=== PATIENT | male | born 1955 | race Caucasian/White ===

== ENCOUNTER 2018-10-23 06:04 | Day surgery (SDC) | payer OTHER ==
[2018-10-19 12:15] VITALS: BMI 25.3
[~2018-10-23 06:04] MED LIST: LACTATED RINGERS 1,000 ML IV SCH; LIDOCAINE 1% 20 ML VIAL (10MG/ML) FOR IV START INTRADERMA PRN
[2018-10-23 06:31] VITALS: RESP 16; TEMP 98.1
[2018-10-23 06:52] LABS: Anisocytosis Slight; Basophils # (A) 0.1 k/uL (0-0.2); Basophils % (A) 1 %; Eosinophils # (A) 0.1 k/uL (0-0.7); Eosinophils % (A) 1 %; HCT 51.5 % (39.0-53.0); HGB 15.8 gm/dL (13.0-17.5); Hypochromasia Slight; Lymphocytes # (A) 1.2 k/uL (1.0-4.8); Lymphocytes % (A) 11 %; MCH 24.3 pg (25.0-35.0); MCHC 30.7 g/dL (31.0-37.0); MCV 79.1 fL (80.0-100.0); Mean Platelet Volume 7.5; Microcytosis Slight; Monocytes # (A) 0.7 k/uL (0-1.0); Monocytes % (A) 6 %; Neutrophils # (A) 8.5 k/uL (1.3-7.7); Neutrophils % (A) 80 %; Platelet Count 453 k/uL (150-450); RBC 6.51 m/uL (4.30-5.90); RDW 17.3 % (11.5-15.5); WBC 10.7 k/uL (3.8-10.6)
[2018-10-23] MEDS ORDERED: LIDOCAINE 1% INJ 10MG/ML (20 ML MDV) ONE (07:00)
[2018-10-23] MEDS ORDERED: fentaNYL (PF) 50 MCG/ML 2 ML AMP ONE (07:00)
[2018-10-23] MEDS ORDERED: PROPOFOL 10 MG/ML 20 ML VIAL IV ONE (07:00)
[2018-10-23] MEDS ORDERED: MIDAZOLAM 2 MG/2 ML VIAL ONE (07:00)
[2018-10-23] MEDS ORDERED: LIDOCAINE 2% INJ 20 MG/ML SQ ONE (07:16)
[2018-10-23 07:48] VITALS: BP 119/74; PULSE 94
--- NOTE | 2018-10-23 08:15 | PCN ---
PROCEDURE NOTE DATE OF PROCEDURE: 10/23/2018 PREOPERATIVE DIAGNOSIS: Erythrocytosis. POSTOPERATIVE DIAGNOSIS: Erythrocytosis. PROCEDURE: Bone marrow aspirate and biopsy. SITE: Right iliac crest. ANESTHESIA: Local with systemic sedation. DETAILS: Utilizing sterile technique, the skin overlying the right iliac crest were prepared with Betadine and alcohol. After adequate sterile draping, systemic sedation and local anesthesia with 1% lidocaine, a size 11, 4-inch Jamshidi needle utilized to access the periosteum with ease. A total of 10 mL of aspirate and 4 cm bone core biopsies were obtained. The patient tolerated the procedure very well. There was no immediate procedure related complications. TOTAL BLOOD LOSS: Less than 1 mL. RESULTS: Pending. MMODL / IJN: [id number] /
== END 2018-10-23 08:05 | disposition home or self-care (01) ==
LOC: OR 06:04
PROVIDERS: ATTEND Internal Medicine Hematology & Oncology
DX: D75.1 Secondary polycythemia (principal); D72.829 Elevated white blood cell count, unspecified; D47.3 Essential (hemorrhagic) thrombocythemia; F31.9 Bipolar disorder, unspecified; F20.9 Schizophrenia, unspecified; F17.210 Nicotine dependence, cigarettes, uncomplicated; N18.9 Chronic kidney disease, unspecified; Z79.899 Other long term (current) drug therapy; Z71.6 Tobacco abuse counseling; Z71.3 Dietary counseling and surveillance
CPT/HCPCS: 85025; 38222; J2001 ×2; J2250; J3010; J2704

== ENCOUNTER → 2019-07-25 | Outpatient (CLI) | payer OTHER ==
--- NOTE | 2019-07-25 15:58 | CT ---
EXAMINATION TYPE: CT ChestAbdPelvis w con DATE OF EXAM: 07/25/2019 INDICATION: SOB, weight loss, change in appetite COMPARISON: 10/08/2008 CT DLP: 551.2 mGycm CONTRAST: Performed with Oral Contrast and with IV Contrast, patient injected with 80 mL of Isovue 300. TECHNIQUE: Axial images at 5 mm thick sections. Reconstructed images in the coronal plane. Delayed images through the kidneys. FINDINGS: CT CHEST: Portion of the thyroid visualized is normal. There is contrast within the esophagus. Correlate for reflux. No suspicious lung nodules or focal infiltrates are present. No enlarged mediastinal or hilar adenopathy is evident. The ascending aorta diameter at the level of the main pulmonary artery is 3.0 cm. The main pulmonary artery diameter at the bifurcation is 2.[address] ABDOMEN: Liver: Normal Spleen: Normal Pancreas: Normal Adrenal glands: The adrenal glands are normal. Gallbladder: Surgically absent Kidneys: No masses are evident. No hydronephrosis is present. No cysts are present. Delayed images were obtained through the kidneys, which remain unremarkable. Aorta: Vascular calcification is within the aorta. Inferior vena cava: Normal. CT PELVIS: Loops of bowel within the abdomen and pelvis are normal. Moderate size fecal bolus is at the level the rectum. Loops of bowel distended with oral contrast are unremarkable. There are loops of bowel la cking oral contrast limiting their evaluation. Contrast extends to the proximal ascending colon. Mixi ng of contrast with fecal debris may be present. An mass cannot be excluded. Appendix: Normal as visualized. Urinary bladder: Normal. Genitourinary structures: Prostate is very prominent. Osseous structures: No suspicious lytic or sclerotic lesions. IMPRESSIONS: 1. Very prominent prostate. 2. Filling defect versus normal fecal debris mixing contrast the proximal cecum should be considered. 3. Gastroesophageal reflux be considered.
== END | disposition home or self-care (01) ==
LOC: RADCTMAIN 10:49
PROVIDERS: ATTEND Internal Medicine Hematology & Oncology
DX: K21.9 Gastro-esophageal reflux disease without esophagitis (principal); R63.4 Abnormal weight loss; R06.02 Shortness of breath; R10.84 Generalized abdominal pain
CPT/HCPCS: 82565; 84520; 71260; 74177; 36415; Q9967

== ENCOUNTER → 2020-10-30 | Outpatient (CLI) | payer OTHER ==
--- NOTE | 2020-10-30 13:54 | MR ---
EXAMINATION TYPE: MR lumbar spine wo con DATE OF EXAM: 10/30/2020 COMPARISON: CT chest abdomen and pelvis July 25, 2019 HISTORY: Lower back pain with left sided radiculopathy. TECHNIQUE: Multiplanar, multisequence imaging of the lumbar spine is performed without IV contrast. FINDINGS: Examination was suboptimal due to patient special needs complete imaging could not be perfo rmed. Only sagittal and axial T2-weighted images acquired. Sagittal images of the lumbar spine show v ertebral body height to remain satisfactory. Slight grade 1 retrolisthesis L4 on L5 redemonstrated. D isc desiccation L2-L3 and L4-L5 levels. Moderate to advanced disc space narrowing L4-L5 level redemon strated. The conus medullaris is normal in position and signal ending at T12-L1 disc space level. So me heterogeneous endplate changes superior anterior L3 and L4 levels noted. Mild multilevel anterior spurring. Axial images show motion artifact degradation by T12-L1 and L1-L2 levels are felt within normal limit s. Axial images at L2-L3 and L3-L4 levels are felt within normal limits. Axial images at L4-L5 level show mild facet arthropathy bilaterally. There is a broad disc bulge effa cing the anterior thecal sac with slightly more prominent left paracentral component effacing left la teral recess and central left L5 nerve on axial image 7. Patent bilateral neural foramina. Axial images at L5-S1 level show mild facet arthropathy otherwise are within normal limits. Paraspinal muscle bulk is maintained. IMPRESSION: Subtle spondylolisthesis and degenerative change L4-L5 level. Effacement central left L5 nerve is felt present. Further details as discussed above.
== END | disposition home or self-care (01) ==
LOC: RADMRIMAIN 11:21
PROVIDERS: ATTEND Family Medicine
DX: M47.26 Other spondylosis with radiculopathy, lumbar region (principal); M51.16 Intervertebral disc disorders with radiculopathy, lumbar region; M43.16 Spondylolisthesis, lumbar region
CPT/HCPCS: 72148

== ENCOUNTER 2021-04-08 11:47 | Day surgery (SDC) | payer OTHER ==
[2021-04-06 11:24] VITALS: BMI 25.1
[~2021-04-08 11:47] MED LIST changes: -LIDOCAINE 1% 20 ML VIAL (10MG/ML) FOR IV START INTRADERMA PRN
[2021-04-08 12:27] VITALS: RESP 16; TEMP 98
[2021-04-08] MEDS ORDERED: MIDAZOLAM 2 MG/2 ML VIAL ONE (12:52)
[2021-04-08] MEDS ORDERED: fentaNYL (PF) 50 MCG/ML 2 ML AMP ONE (12:52)
[2021-04-08] MEDS ORDERED: TRIAMCINOLONE ACETONIDE 40 MG/ML 1 ML VIAL ONE (12:52)
[2021-04-08] MEDS ORDERED: ROPIVACAINE 5MG/ML 20ML VIAL ONE (12:52)
[2021-04-08] MEDS ORDERED: IOPAMIDOL M200 10 ML VIAL ONE (12:52)
--- NOTE | 2021-04-08 13:02 | P.PCN ---
Date of Procedure: 04/08/21 Surgeon: Aime Glasgow Pathology: none sent Condition: stable Disposition: PACU Description of Procedure: PREOPERATIVE DIAGNOSIS: 1-Lumbar radiculopathy 2- Lumber Degenerative Disc Diseases. POSTOPERATIVE DIAGNOSIS: 1-Lumbar radiculopathy. 2-Lumbar Degenerative Disc Diseases PROCEDURE 1. Lumbar epidural steroid injection under fluoroscopic guidance at the L4-5 level in the left paramedian approach. 2. Lumbar epidurogram. ANESTHESIA: Local with 1% lidocaine; and IV moderate conscious sedation with Versed and fentanyl EBL: Minimal PROCEDURE INDICATION: The patient with low back pain and radiculitis symptoms unresponsive to conservative treatment. Fluoroscopy was used to optimize visualization of the needle placement and to maximize safety. PROCEDURE DESCRIPTION / TECHNIQUE: The patient was seen and identified in the preoperative area. Risks, benefits, complications including but not limited to infections ,bleeding ,allergic reaction to the medications ,nerve damage and not complete pain relief , and alternatives were discussed with the patient. The patient agreed to proceed with the procedure and signed the consent. IV was started, and vital signs were stable. Patient was taken to the OR and time out was completed. The patient was placed in the prone position on procedure table and a pillow was placed under the abdomen to reduce lumbar lordosis. The lumbosacral area was prepped and draped in the usual sterile fashion with ChloraPrep.Patient was closely monitored during the procedure. Conscious sedation was used during the procedure to decrease patients anxiety. Vital signs were monitered during the entire procedure. Using anterior-posterior fluoroscopy, the L4-5 interlaminar space was identified and the skin over this site was marked and then infiltrated with 1% lidocaine subcutaneously. Subsequently, a 20-gauge Tuohy epidural needle was inserted and advanced toward the epidural space using the Loss of resistance to air technique and guided by AP and lateral fluoroscopy. The correct needle position in the epidural space was verified with the injection of 1 mL of the water soluble contrast dye Omnipaque 180 contrast and observing an excellent epidurogram with the epidural spread of the dye, after negative aspiration for blood and CSF and in the absence of paresthesias. Again after negative aspiration, a 8 ml mixture containing 80 mg of Kenalog and 5 ml of preservative free Normal Saline, and 2 ml of preservative free ropivacaine 0.5% solution was injected and a washout of epidurogram was seen. Needle was withdrawn intact, skin was cleansed, and bandages were applied. patient tolerated procedure well and was transferred to PACU in stable condition.A copy of the needle placement picture was saved to the fluoroscopy machine. COMPLICATIONS: None DISPOSITION / PLANS: The patient was placed in a supine position and transferred to the recovery area in a stable condition for observation. There was no evidence of lower extremity motor or sensory deficit after the procedure. Patient was discharged from the recovery room after meeting discharge criteria. Home discharge instructions were given to the patient by the staff. The patient was reexamined prior to discharge. The patient will schedule a follow up in the clinic in 2-4 weeks.
[2021-04-08] MEDS ORDERED: IV FLUID CONTINUATION 1,000 ML IV ONE (13:07)
--- NOTE | 2021-04-08 13:12 | FL ---
EXAMINATION TYPE: FL guided pain mgmt statistic DATE OF EXAM: 04/08/2021 HISTORY: Fluoroscopy time 2 seconds of fluoroscopy provided. IMPRESSION: 1. Fluoroscopy time.
[2021-04-08 13:27] VITALS: BP 116/56; PULSE 95
== END 2021-04-08 13:51 | disposition home or self-care (01) ==
LOC: ORPAIN 11:47
PROVIDERS: ATTEND Anesthesiology
DX: M51.16 Intervertebral disc disorders with radiculopathy, lumbar region (principal)
CPT/HCPCS: 62323; J2250; J3301; J3010; Q9966; J2795

== ENCOUNTER 2021-06-15 08:39 | Day surgery (SDC) | payer OTHER ==
[2021-05-19 10:32] VITALS: BMI 25.4
[2021-06-15 09:04] VITALS: RESP 16; TEMP 97.9
[2021-06-15] MEDS ORDERED: LACTATED RINGERS 1,000 ML IV SCH (09:15)
[2021-06-15] MEDS ORDERED: fentaNYL (PF) 50 MCG/ML 2 ML AMP ONE (09:35)
[2021-06-15] MEDS ORDERED: MIDAZOLAM 2 MG/2 ML VIAL ONE (09:35)
[2021-06-15] MEDS ORDERED: methylPREDNISolone ACETATE 40 MG/ML 1 ML VIAL ONE (09:35)
[2021-06-15] MEDS ORDERED: IOPAMIDOL M200 10 ML VIAL ONE (09:35)
--- NOTE | 2021-06-15 09:48 | P.PCN ---
Date of Procedure: 06/15/21 Description of Procedure: Procedure: 1. L4-L5 Epidural steroid injection under fluoroscopic guidance #2, 2. Lumbar epidurogram PREOPERATIVE DIAGNOSIS: Lumbar degenerative disc disease, and Lumbar radiculopathy. POSTOPERATIVE DIAGNOSIS: Lumbar degenerative disc disease, and Lumbar ra diculopathy. SURGEON: Barb Cortes ANESTHESIA: Local with 1% lidocaine, and IV sedation: Versed, and fentanyl. EBL: None. Specimen removed: None Fluoroscopic image: saved to electronic medical records PROCEDURE INDICATION: The patient had history of Lumbar degenerative disc disease and Lumbar radiculopathy. Patient had very good pain relief with the previous epidural steroid injection. Failed to conservative therapy. Came here for repeat epidural steroid injection. PROCEDURE DESCRIPTION: The patient was seen and identified in the preoperative area. Risks, benefits, complications, and alternatives were discussed with the patient. The patient agreed to proceed with the procedure and signed the consent. IV was started, and vital signs were stable. Patient was taken to the procedure area, and time out was completed. The patient was placed in the prone position on procedure table and a pillow was placed under the abdomen to reduce lumbar lordosis. The lumbosacral area was prepped and draped in the usual sterile fashion. Critical pause was taken. Vital signs were closely monitored during the procedure. Using anterior-posterior fluoroscopy, the L4-L5 interlaminar space was identified, and skin and deeper tissues were localized with 1% lidocaine. Using anterior-posterior fluoroscopy, lateral fluoroscopy, and [id number] technique, a 20 gauge 3.5 Tuohy epidural needle entered the epidural space. After negative aspiration of CSF and blood with no paresthesias, 1 ml of Ssyrby138 contrast dye was injected and an excellent epidurogram was seen. Again after negative aspiration of CSF and blood with no paresthesias, 10 mL of block solution was injected into the epidural space. Block solution contained 80 mg of Depo-Medrol, and 9 mL of preservative-free normal saline. Needle was withdrawn intact, skin was cleansed, and bandages were applied. COMPLICATIONS: None. DISPOSITION / PLANS: The patient was placed in a supine position and transferred to the recovery area in a stable condition for observation. Patient was discharged from the recovery room after meeting discharge criteria. Home discharge instructions given to the patient by the staff. The patient was reexamined prior to discharge. The patient will schedule a follow up in the clinic in 4 weeks.
[2021-06-15] MEDS ORDERED: IV FLUID CONTINUATION 1,000 ML IV ONE (09:53)
[2021-06-15 10:09] VITALS: BP 120/78; PULSE 98
--- NOTE | 2021-06-15 10:09 | FL ---
EXAMINATION TYPE: FL guided pain mgmt statistic DATE OF EXAM: 06/15/2021 HISTORY: Fluoroscopy time 2 seconds of fluoroscopy provided. IMPRESSION: 1. Fluoroscopy time.
== END 2021-06-15 10:16 | disposition home or self-care (01) ==
LOC: ORPAIN 08:39
DX: M47.816 Spondylosis without myelopathy or radiculopathy, lumbar region (principal); M51.16 Intervertebral disc disorders with radiculopathy, lumbar region
CPT/HCPCS: 62323; J2250; J1030; J3010; Q9966

== ENCOUNTER 2024-03-16 16:18 | Observation (INO) | payer MEDICARE, OTHER ==
--- NOTE | 2024-03-16 16:40 | ED ---
SOB HPI - General Chief Complaint: Shortness of Breath Stated Complaint: MARIYA Time Seen by Provider: 03/16/24 16:27 Source: patient, family Mode of arrival: wheelchair Limitations: physical limitation (Schizophrenia) - History of Present Illness Initial Comments: This patient is a 68-year-old man with history of schizophrenia. The patient is accompanied by his sister, who is also his caregiver and gives most of the history. She states that he usually is not able to give much history. Patient's sister states that all of the family at home had been sick, with upper respiratory type symptoms cough, congestion, and then over the past few days the patient started having similar symptoms, cough, congestion but he also stopped eating and drinking much and now is becoming very weak. She states that he is not really getting around the house and he has not been able to get to the bathroom and has lost control of bowel movements. When I interviewed the patient, he denies pain. He denies dyspnea. MD Complaint: shortness of breath, cough Onset/Timin -: days(s) Consistency: constant Improves With: nothing Worsens With: exertion Associated Symptoms: cough Treatments Prior to Arrival: none - Related Data Home Oxygen Therapy: No Home Medications Medication Instructions Recorded Confirmed cloZAPine [Clozaril] 200 mg PO DAILY 10/19/18 03/16/24 cloZAPine [Clozaril] 400 mg PO HS 10/19/18 03/16/24 Hydroxyurea [Hydrea] 500 mg PO DAILY 04/06/21 03/16/24 Sertraline [Zoloft] 200 mg PO DAILY 04/06/21 03/16/24 LORazepam [Ativan] 1 mg PO DAILY PRN 03/16/24 03/16/24 Previous Rx's Medication Instructions Recorded Albuterol Sulfate [Albuterol 1 puff PO Q4-6H #8.5 gm 03/19/24 Sulfate Hfa] Beclomethasone Dipropionate [Qvar 1 puff INHALATION BID #10.6 gm 03/19/24 40 mcg Redihaler] cefUROXime axetiL [Ceftin] 500 mg PO BID 1 Days #2 tab 03/19/24 Allergies Allergy/AdvReac Type Severity Reaction Status Date / Time No Known Allergies Allergy Verified 07/09/21 15:16 Review of Systems ROS Statement: Those systems with pertinent positive or pertinent negative responses have been documented in the HPI. ROS Other: All systems not noted in ROS Statement are negative. Limitations: ROS unobtainable due to patients medical condition Constitutional: Denies: fever, chills Respiratory: Reports: cough, dyspnea. Denies: hemoptysis Cardiovascular: Denies: chest pain, orthopnea, edema, syncope Gastrointestinal: Reports: diarrhea. Denies: abdominal pain, vomiting Neurological: Denies: headache Past Medical History Past Medical History: GERD/Reflux, Memory Impairment, Renal Disease Additional Past Medical History / Comment(s): "PRODUCING TOO MUCH BLOOD." SKIN "PURPLE" COLOR R/T PREV RX. SCHIZOPHRENIC-LIMITED UNDERSTANDING PER SISTER. History of Any Multi-Drug Resistant Organisms: None Reported Additional Past Surgical History / Comment(s): COLONOSCOPY, BILATERAL CATARACTS. Past Anesthesia/Blood Transfusion Reactions: Family History of Problems w/ A nesthesia Additional Past Anesthesia/Blood Transfusion Reaction / Comment(s): SISTER HAS PONV. Past Psychological History: Schizophrenia Smoking Status: Former smoker Past Alcohol Use History: None Reported Past Drug Use History: None Reported - Past Family History Mother Sister(s) Family Medical History: Cancer, Deep Vein Thrombosis (DVT) Additional Family Medical History / Comment(s): SISTER - BREAST CANCER, DVT. MOTHER - COLON CANCER. General Exam Limitations: no limitations General appearance: alert, in no apparent distress Head exam: Present: atraumatic, normocephalic Eye exam: Present: normal appearance. Absent: scleral icterus, conjunctival injection ENT exam: Present: mucous membranes dry Neck exam: Present: normal inspection, full ROM. Absent: meningismus Respiratory exam: Present: wheezes, rales. Absent: respiratory distress, rhonchi, stridor, accessory muscle use Cardiovascular Exam: Present: normal rhythm, tachycardia, normal heart sounds. Absent: systolic murmur, diastolic murmur, rubs, gallop GI/Abdominal exam: Present: soft. Absent: distended, tenderness, guarding, rebound, rigid, mass Extremities exam: Present: normal inspection, normal capillary refill. Absent: pedal edema, calf tenderness Back exam: Present: normal inspection. Absent: CVA tenderness (R), CVA tenderness (L) Neurological exam: Present: alert Skin exam: Present: warm, dry, intact, normal color. Absent: rash Course Vital Signs 03/16/24 03/16/24 03/16/24 16:21 17:06 17:24 Temperature 97.5 F L Pulse Rate 107 H 79 Respiratory 20 19 18 Rate Blood Pressure 96/60 113/78 O2 Sat by Pulse 96 97 Oximetry 03/16/24 19:35 Temperature Pulse Rate 87 Respiratory 16 Rate Blood Pressure 130/78 O2 Sat by Pulse 96 Oximetry Medical Decision Making - Medical Decision Making The patient had chest x-ray that I interpreted as showing suspected bilateral lower infiltrates. Was pt. sent in by a medical professional or institution (, PA, ASBESTOS WORKER, urgent care, hospital, or [facility]...) When possible be specific @ -[No] Did you speak to anyone other than the patient for history (EMS, parent, family, police, friend...)? What history was obtained from this source @ -[No] Did you review nursing and triage notes (agree or disagree)? Why? @ -[I reviewed and agree with nursing and triage notes] Were old charts reviewed (outside hosp., previous admission, EMS record, old EKG, old radiological studies, urgent care reports/EKG's, [facility] records)? Report findings @ -[No old charts were reviewed] Differential Diagnosis (chest pain, altered mental status, abdominal pain women, abdominal pain men, vaginal bleeding, weakness, fever, dyspnea, syncope, headache, dizziness, GI bleed, back pain, seizure, CVA, palpatations, mental health, musculoskeletal)? @ -[Differential Altered Mental Status: Hypoglycemia, DKA, hypercapnia, ETOH, overdose, CO poisoning, trauma, myxedema coma, HTN encephalopathy, infection, encephalitis, psychosis, intercranial hemorrhage, hepatic encephalopathy, meningitis, CVA, this is not meant to be an all-inclusive list EKG interpreted by me (3pts min.). @ -[As above] X-rays interpreted by me (1pt min.). @ -[ I interpreted as above CT interpreted by me (1pt min.). @ -[None done] U/S interpreted by me (1pt. min.). @ -[None done] What testing was considered but not performed or refused? (CT, X-rays, U/S, labs)? Why? @ -[None] What meds were considered but not given or refused? Why? @ -[None] Did you discuss the management of the patient with other professionals (professionals i.e. , PA, ASBESTOS WORKER, lab, RT, psych nurse, criminal justice social worker, clerk supervisor, teacher, armed custom protection officer, case technician)? Give summary @ -[No] Was smoking cessation discussed for >3mins.? @ -[No] Was critical care preformed (if so, how long)? @ -[No] Were there social determinants of health that impacted care today? How? (Homelessness, low income, unemployed, alcoholism, drug addiction, transportation, low edu. Level, literacy, decrease access to med. care, [facility], rehab)? @ -[No] Was there de-escalation of care discussed even if they declined (Discuss DNR or withdrawal of care, Hospice)? DNR status @ -[No] What co-morbidities impacted this encounter? (DM, HTN, Smoking, COPD, CAD, Cancer, CVA, ARF, Chemo, Hep., AIDS, mental health diagnosis, sleep apnea, morbid obesity)? @ -[None] Was patient admitted / discharged? Hospital course, mention meds given and route, prescriptions, significant lab abnormalities, going to OR and other pertinent info. @ -[Patient is a 68-year-old man here with altered mental status and found to have suspected bilateral lower lobe infiltrate. Will have admission to have further evaluation and treatment. Undiagnosed new problem with uncertain prognosis? @ -[No] Drug Therapy requiring intensive monitoring for toxicity (Heparin, Nitro, Insul in, Cardizem)? @ -[No] Were any procedures done? @ -[No] Diagnosis/symptom? @ -Acute pneumonia Acute delirium Acute, or Chronic, or Acute on Chronic? @ -[Acute Uncomplicated (without systemic symptoms) or Complicated (systemic symptoms)? @ -Pneumonia complicated by delirium/altered mental status change Side effects of treatment? @ -[No] Exacerbation, Progression, or Severe Exacerbation? @ -[No] Poses a threat to life or bodily function? How? (Chest pain, USA, PA, pneumonia, PE, COPD, DKA, ARF, appy, cholecystitis, CVA, Diverticulitis, Homicidal, Suicidal, threat to staff... and all critical care pts) @ -Yes - Lab Data Result diagrams: 03/19/24 05:56 03/19/24 05:56 Lab Results 03/16/24 03/16/24 03/16/24 Range/Units 14:55 16:53 16:53 WBC 10.4 (3.8-10.6) k/uL RBC 3.29 L (4.30-5.90) m/uL Hgb 11.9 L (13.0-17.5) gm/dL Hct 35.9 L (39.0-53.0) % MCV 109.0 H (80.0-100.0) fL MCH 36.0 H (25.0-35.0) pg MCHC 33.1 (31.0-37.0) g/dL RDW 13.7 (11.5-15.5) % Plt Count 543 H (150-450) k/uL MPV 8.1 Neutrophils % 90 % Lymphocytes % 6 % Monocytes % 4 % Eosinophils % 0 % Basophils % 0 % Neutrophils # 9.3 H (1.3-7.7) k/uL Lymphocytes # 0.6 L (1.0-4.8) k/uL Monocytes # 0.4 (0-1.0) k/uL Eosinophils # 0.0 (0-0.7) k/uL Basophils # 0.0 (0-0.2) k/uL Manual Slide Review Performed Hypochromasia Moderate Poikilocytosis Slight Macrocytosis Marked A PT 13.3 H (10.0-12.5) sec INR 1.3 H (<1.2) APTT 27.9 (22.0-30.0) sec Sodium (137-145) mmol/L Potassium (3.5-5.1) mmol/L Chloride (98-107) mmol/L Carbon Dioxide (22-30) mmol/L Anion Gap mmol/L BUN (9-20) mg/dL Creatinine (0.66-1.25) mg/dL Est GFR (CKD-EPI)AfAm (>60 ml/min/1.73 sqM) Est GFR (CKD-EPI)NonAf (>60 ml/min/1.73 sqM) Glucose (74-99) mg/dL Plasma Lactic Acid Amilcar (0.7-2.0) mmol/L Calcium (8.4-10.2) mg/dL Total Bilirubin (0.2-1.3) mg/dL AST (17-59) U/L ALT (4-49) U/L Alkaline Phosphatase (38-126) U/L Troponin I (0.000-0.034) ng/mL NT-Pro-B Natriuret Pep pg/mL Total Protein (6.3-8.2) g/dL Albumin (3.5-5.0) g/dL Influenza Type A (PCR) (Not Detectd) Influenza Type B (PCR) (Not Detectd) Urine Legionella Ag Negative (Negative) Mycoplasma pneumon IgM (<=0.90) INDEX RSV (PCR) (Not Detectd) SARS-CoV-2 (PCR) (Not Detectd) 03/16/24 03/16/24 03/16/24 Range/Units 16:53 16:53 16:53 WBC (3.8-10.6) k/uL RBC (4.30-5.90) m/uL Hgb (13.0-17.5) gm/dL Hct (39.0-53.0) % MCV (80.0-100.0) fL MCH (25.0-35.0) pg MCHC (31.0-37.0) g/dL RDW (11.5-15.5) % Plt Count (150-450) k/uL MPV Neutrophils % % Lymphocytes % % Monocytes % % Eosinophils % % Basophils % % Neutrophils # (1.3-7.7) k/uL Lymphocytes # (1.0-4.8) k/uL Monocytes # (0-1.0) k/uL Eosinophils # (0-0.7) k/uL Basophils # (0-0.2) k/uL Manual Slide Review Hypochromasia Poikilocytosis Macrocytosis PT (10.0-12.5) sec INR (<1.2) APTT (22.0-30.0) sec Sodium 141 (137-145) mmol/L Potassium 3.2 L (3.5-5.1) mmol/L Chloride 106 (98-107) mmol/L Carbon Dioxide 27 (22-30) mmol/L Anion Gap 8 mmol/L BUN 22 H (9-20) mg/dL Creatinine 1.24 (0.66-1.25) mg/dL Est GFR (CKD-EPI)AfAm 70 (>60 ml/min/1.73 sqM) Est GFR (CKD-EPI)NonAf 61 (>60 ml/min/1.73 sqM) Glucose 136 H (74-99) mg/dL Plasma Lactic Acid Amilcar 1.1 (0.7-2.0) mmol/L Calcium 9.1 (8.4-10.2) mg/dL Total Bilirubin 0.5 (0.2-1.3) mg/dL AST 23 (17-59) U/L ALT 18 (4-49) U/L Alkaline Phosphatase 149 H (38-126) U/L Troponin I <0.012 (0.000-0.034) ng/mL NT-Pro-B Natriuret Pep 134 pg/mL Total Protein 6.6 (6.3-8.2) g/dL Albumin 3.2 L (3.5-5.0) g/dL Influenza Type A (PCR) (Not Detectd) Influenza Type B (PCR) (Not Detectd) Urine Legionella Ag (Negative) Mycoplasma pneumon IgM (<=0.90) INDEX RSV (PCR) (Not Detectd) SARS-CoV-2 (PCR) (Not Detectd) 03/16/24 03/16/24 Range/Units 16:53 16:53 WBC (3.8-10.6) k/uL RBC (4.30-5.90) m/uL Hgb (13.0-17.5) gm/dL Hct (39.0-53.0) % MCV (80.0-100.0) fL MCH (25.0-35.0) pg MCHC (31.0-37.0) g/dL RDW (11.5-15.5) % Plt Count (150-450) k/uL MPV Neutrophils % % Lymphocytes % % Monocytes % % Eosinophils % % Basophils % % Neutrophils # (1.3-7.7) k/uL Lymphocytes # (1.0-4.8) k/uL Monocytes # (0-1.0) k/uL Eosinophils # (0-0.7) k/uL Basophils # (0-0.2) k/uL Manual Slide Review Hypochromasia Poikilocytosis Macrocytosis PT (10.0-12.5) sec INR (<1.2) APTT (22.0-30.0) sec Sodium (137-145) mmol/L Potassium (3.5-5.1) mmol/L Chloride (98-107) mmol/L Carbon Dioxide (22-30) mmol/L Anion Gap mmol/L BUN (9-20) mg/dL Creatinine (0.66-1.25) mg/dL Est GFR (CKD-EPI)AfAm (>60 ml/min/1.73 sqM) Est GFR (CKD-EPI)NonAf (>60 ml/min/1.73 sqM) Glucose (74-99) mg/dL Plasma Lactic Acid Amilcar (0.7-2.0) mmol/L Calcium (8.4-10.2) mg/dL Total Bilirubin (0.2-1.3) mg/dL AST (17-59) U/L ALT (4-49) U/L Alkaline Phosphatase (38-126) U/L Troponin I (0.000-0.034) ng/mL NT-Pro-B Natriuret Pep pg/mL Total Protein (6.3-8.2) g/dL Albumin (3.5-5.0) g/dL Influenza Type A (PCR) Not Detected (Not Detectd) Influenza Type B (PCR) Not Detected (Not Detectd) Urine Legionella Ag (Negative) Mycoplasma pneumon IgM 0.39 (<=0.90) INDEX RSV (PCR) Not Detected (Not Detectd) SARS-CoV-2 (PCR) Not Detected (Not Detectd) - EKG Data -: EKG Interpreted by [place] EKG shows normal: sinus rhythm (Rate 91 bpm), axis (Right axis deviation), QRS complexes (Right bundle branch block) Disposition Clinical Impression: Pneumonia, Altered mental status Disposition: ADMITTED IP TO THIS HOSP Condition: Fair Is patient prescribed a controlled substance at d/c from ED?: No
[2024-03-16] MEDS: SODIUM CHLORIDE 0.9% 500 ML 500 ML IV STA ×3 (16:50→19:31)
--- NOTE | 2024-03-16 17:28 | XR ---
EXAMINATION TYPE: XR chest 2V DATE OF EXAM: 03/16/2024 COMPARISON: None INDICATION: Cough x2 weeks with difficulty breathing TECHNIQUE: Frontal and lateral views of the chest are obtained. FINDINGS: The heart size is normal. The pulmonary vasculature is normal. Bibasilar infiltrates are present and some nonspecific right mid chest increased lung markings are pr esent. Correlate for atypical pneumonia. Atelectasis and bibasilar pneumonia could be considered. IMPRESSION: 1. Correlate for bibasilar atypical pneumonia. [facility], Workstation: [facility], 03/16/2024 5:25 PM
[2024-03-16 17:40] LABS: ALT 18 U/L (4-49); AST 23 U/L (17-59); African American GFR (CKD) 70 (>60 ml/min/1.73 sqM); Albumin 3.2 g/dL (3.5-5.0); Alkaline Phosphatase 149 U/L (38-126); Anion Gap 8 mmol/L; Blood Urea Nitrogen 22 mg/dL (9-20); Calcium 9.1 mg/dL (8.4-10.2); Carbon Dioxide 27 mmol/L (22-30); Chloride 106 mmol/L (98-107); Glucose 136 mg/dL (74-99); Non-African American GFR(CKD) 61 (>60 ml/min/1.73 sqM); Potassium 3.2 mmol/L (3.5-5.1); Sodium 141 mmol/L (137-145); Total Bilirubin 0.5 mg/dL (0.2-1.3); Total Protein 6.6 g/dL (6.3-8.2)
[2024-03-16 17:48] LABS: INR 1.3 (<1.2); NT-Pro-B-Type Natriuretic Pept 134 pg/mL; Partial Thromboplastin Time 27.9 sec (22.0-30.0); Prothrombin Time 13.3 sec (10.0-12.5)
[2024-03-16 18:00] LABS: Basophils % (A) 0 %; Eosinophils % (A) 0 %; HCT 35.9 % (39.0-53.0); HGB 11.9 gm/dL (13.0-17.5); Hypochromasia Moderate; Lymphocytes # (A) 0.6 k/uL (1.0-4.8); Lymphocytes % (A) 6 %; MCHC 33.1 g/dL (31.0-37.0); Macrocytosis Marked; Mean Platelet Volume 8.1; Monocytes # (A) 0.4 k/uL (0-1.0); Monocytes % (A) 4 %; Neutrophils # (A) 9.3 k/uL (1.3-7.7); Neutrophils % (A) 90 %; Platelet Count 543 k/uL (150-450); Poikilocytosis Slight; RBC 3.29 m/uL (4.30-5.90); RDW 13.7 % (11.5-15.5); WBC 10.4 k/uL (3.8-10.6)
[2024-03-16] MEDS: POTASSIUM CHLORIDE ER 20 MEQ TAB.ER PO STA (18:42)
[2024-03-16] MEDS: AZITHROMYCIN 500 MG TAB PO STA (18:42)
[2024-03-16] MEDS ORDERED: PNEUMONIA PROTOCOL UTILIZED 1 EACH MISC PO PRN (20:24)
[2024-03-16] MEDS ORDERED: LORazepam 1 MG TAB PO PRN (23:35)
[2024-03-16] MEDS: cloZAPine 100 MG TAB PO SCH (23:54)
--- NOTE | 2024-03-17 06:46 | XR ---
EXAMINATION TYPE: XR chest 1V portable DATE OF EXAM: 03/17/2024 COMPARISON: 03/16/2024 HISTORY: Pneumonia TECHNIQUE: Single frontal view of the chest is obtained. FINDINGS: There is increasing opacification in the left lung base. The opacification the right lung base is dec reased in the interval. There is stable fluffy small air space consolidation in the right lung. There is no pleural effusion or pneumothorax. The heart and pulmonary vascularity are normal. The oss eous structures are intact. IMPRESSION: Overall no significant change in the acute cardiopulmonary process with possible mild wo rsening in the left lung base. [facility], , 03/17/2024 6:43 AM
[2024-03-17] MEDS: DOXYCYCLINE 100 MG CAP PO SCH (08:14)
[2024-03-17] MEDS: cloZAPine 100 MG TAB PO SCH (08:14)
[2024-03-17] MEDS: SERTRALINE 100 MG TAB PO SCH (08:14)
[2024-03-17] MEDS ORDERED: AZITHROMYCIN 500 MG TAB PO SCH (09:00)
[2024-03-17] MEDS ORDERED: BENZOCAINE/MENTHOL LOZENG 1 EACH LOZENGE MUCOUS MEM PRN (09:53)
[2024-03-17] MEDS ORDERED: guaiFENesin-Coden 100-10MG/5ML 10 ML CUP PO PRN (09:53)
--- NOTE | 2024-03-17 10:50 | P.HPIM ---
History of Present Illness H&P Date: 03/17/24 History of present illness; patient is 68-year-old gentleman past medical history significant for schizophrenia who was brought to the ER for generalized weakness and chest congestion. Patient is a poor historian, history obtained from patient's family. According to sister who is a caregiver patient has been feeling weak over the last few days. Patient has been exposed to sick contacts at home as most of the family is dealing with upper respiratory tract infection. Patient has been complaining of cough and chest congestion for the last few days. Patient has been having poor appetite. Patient is complaining of productive cough there is no complaint of fever or chills. Patient has become weak and unable to ambulate because of weakness. Because of these symptoms, patient brought to the ER Initial lab work done in the ER showed WBC 10.4, hemoglobin 11.9, platelet count 543, INR 1.3, sodium 141, potassium 3.2, BUN 22, creatinine 1.24, glucose 136, alk phos 149, Influenza A not detected Influenza B not detected RSV not detected COVID-19 not detected EKG done in the ER showed heart rate of 91, no ST segment elevation or depression seen, no T-wave inversions seen. Chest x-ray done in the ER showed bibasilar atypical pneumonia Patient admitted to internal medicine service REVIEW OF SYSTEMS: CONSTITUTIONAL: As mentioned above HEENT: No recent visual problems or hearing problems. Denied any sore throat. CARDIOVASCULAR: As mentioned above PULMONARY: As mentioned above GASTROINTESTINAL: No diarrhea, no nausea, no vomiting, no abdominal pain. NEUROLOGICAL: As mentioned above HEMATOLOGICAL: Denies any bleeding or petechiae. GENITOURINARY: Denies any burning micturition, frequency, or urgency. MUSCULOSKELETAL/RHEUMATOLOGICAL: Denies any joint pain, swelling, or any muscle pain. ENDOCRINE: Denies any polyuria or polydipsia. The rest of the 14-point review of systems is negative. PHYSICAL EXAMINATION: GENERAL: The patient is alert , not in any acute distress. Well developed, well nourished. HEENT: Pupils are round and equally reacting to light. EOMI. No scleral icterus. No conjunctival pallor. Normocephalic, atraumatic. No pharyngeal erythema. No thyromegaly. CARDIOVASCULAR: S1 and S2 present. No murmurs, rubs, or gallops. PULMONARY: Chest is clear to auscultation, no wheezing or crackles. ABDOMEN: Soft, nontender, nondistended, normoactive bowel sounds. No palpable organomegaly. MUSCULOSKELETAL: No joint swelling or deformity. EXTREMITIES: No cyanosis, clubbing, or pedal edema. NEUROLOGICAL: Gross neurological examination did not reveal any focal deficits. SKIN: No rashes. Assessment and plan Bacterial pneumonia Debility Schizophrenia Monitor vital signs Monitor CBC Monitor CMP Ordered D-dimer Ordered troponin Ordered IV Rocephin and doxycycline Ordered breathing treatments Ordered Mucinex and Tessalon Perles Continue IV fluid Consult ID Labs and medication were reviewed.. Continue same treatment. Continue with symptomatic treatment. Resume home medication. Monitor labs and vitals. DVT and GI prophylaxis. Further recommendations as per clinical course of the patient Dictation was produced using [employer] dictation software. please excuse any grammatical, word or spelling errors. Past Medical History Past Medical History: GERD/Reflux, Memory Impairment, Renal Disease Additional Past Medical History / Comment(s): "PRODUCING TOO MUCH BLOOD." SKIN "PURPLE" COLOR R/T PREV RX. SCHIZOPHRENIC-LIMITED UNDERSTANDING PER SISTER. History of Any Multi-Drug Resistant Organisms: None Reported Additional Past Surgical History / Comment(s): COLONOSCOPY, BILATERAL CATARACTS. Past Anesthesia/Blood Transfusion Reactions: Family History of Problems w/ Anesthesia Additional Past Anesthesia/Blood Transfusion Reaction / Comment(s): SISTER HAS PONV. Past Psychological History: Schizophrenia Smoking Status: Former smoker Past Alcohol Use History: None Reported Additional Past Alcohol Use History / Comment(s): QUIT SMOKING 2017-SMOKING SINCE AGE 14, UP TO 2 PPD. Past Drug Use History: None Reported - Past Family History Mother Sister(s) Family Medical History: Cancer, Deep Vein Thrombosis (DVT) Additional Family Medical History / Comment(s): SISTER - BREAST CANCER, DVT. MOTHER - COLON CANCER. Medications and Allergies Home Medications Medication Instructions Recorded Confirmed Type cloZAPine [Clozaril] 200 mg PO DAILY 10/19/18 03/16/24 History cloZAPine [Clozaril] 400 mg PO HS 10/19/18 03/16/24 History Hydroxyurea [Hydrea] 500 mg PO DAILY 04/06/21 03/16/24 History Sertraline [Zoloft] 200 mg PO DAILY 04/06/21 03/16/24 History LORazepam [Ativan] 1 mg PO DAILY PRN 03/16/24 03/16/24 History Allergies Allergy/AdvReac Type Severity Reaction Status Date / Time No Known Allergies Allergy Verified 07/09/21 15:16 Physical Exam Vitals: Vital Signs Temp Pulse Pulse Resp BP BP BP 03/17/24 07:00 98.8 F 99 16 127/81 03/17/24 02:00 97.6 F 84 17 110/68 03/16/24 22:06 98.3 F 94 15 107/62 03/16/24 19:35 87 16 130/78 03/16/24 17:24 79 18 113/78 03/16/24 17:06 19 03/16/24 16:21 97.5 F L 107 H 20 96/60 Pulse Ox 03/17/24 07:00 95 03/17/24 02:00 96 03/16/24 22:06 99 03/16/24 19:35 96 03/16/24 17:24 97 03/16/24 17:06 03/16/24 16:21 96 Intake and Output 03/16/24 03/17/24 03/17/24 22:59 06:59 14:59 Intake Total 236 Balance 236 Intake: Oral 236 Other: Voiding Method Toilet Toilet Urinal Urinal # Bowel Movements 1 Weight 63.503 kg Results CBC & Chem 7: 03/16/24 16:53 03/16/24 16:53 Labs: Abnormal Lab Results - Last 24 Hours (Table) 03/16/24 03/16/24 03/16/24 Range/Units 16:53 16:53 16:53 RBC 3.29 L (4.30-5.90) m/uL Hgb 11.9 L (13.0-17.5) gm/dL Hct 35.9 L (39.0-53.0) % MCV 109.0 H (80.0-100.0) fL MCH 36.0 H (25.0-35.0) pg Plt Count 543 H (150-450) k/uL Neutrophils # 9.3 H (1.3-7.7) k/uL Lymphocytes # 0.6 L (1.0-4.8) k/uL Macrocytosis Marked A PT 13.3 H (10.0-12.5) sec INR 1.3 H (<1.2) Potassium 3.2 L (3.5-5.1) mmol/L BUN 22 H (9-20) mg/dL Glucose 136 H (74-99) mg/dL Alkaline Phosphatase 149 H (38-126) U/L Albumin 3.2 L (3.5-5.0) g/dL Thrombosis Risk Factor Assmnt - Choose All That Apply Each Risk Factor Represents 2 Points: Age 61-74 years Each Risk Factor Represents 3 Points: Family history of DVT/PE Thrombosis Risk Factor Assessment Total Risk Factor Score: 5 Thrombosis Risk Factor Assessment Level: High Risk
[2024-03-17] MEDS: guaiFENesin 600 MG TABLET.ER PO SCH (11:45)
[2024-03-17] MEDS: SODIUM CHLORIDE 0.9% 1,000 ML IV SCH (13:09)
--- NOTE | 2024-03-17 23:46 | P.CONS ---
History of Present Illness - Reason for Consult Consult date: 03/17/24 Pneumonia Requesting physician: Antonio Bullard - Chief Complaint Shortness of breath and cough x few days - History of Present Illness Patient is a 68-year-old male with a past medical history significant for reflux memory impairment, renal disease patient has been brought into the hospital concerning for shortness of breath cough and congestion that apparently has been getting worse for the last few days apparently patient has stopped eating and drinking much and not becoming more weaker patient on presentation to the hospital was afebrile and no fever have been called subsequently patient was nontachycardic hypotensive or hypoxic patient did have a white count of 10.4 with a left shift creatinine has been normal BUN was mildly elevated liver enzymes are normal patient tested negative for influenza RSV and COVID patient did have a chest x-ray that has been reported as bibasilar atypical pneumonia patient was started on Rocephin and Zithromax which was switched over to doxycycline infectious disease was consulted for further management patient has been complaining of cough which has been moderate intensity however not bringing up any sputum and has improved with chest pain patient denies of any nausea vomiting no choking on the food no abdominal pain or any diarrhea Review of Systems Positive point and negatives has been mentioned in the HPI, complete review of systems was performed and all other systems are negative Past Medical History Past Medical History: GERD/Reflux, Memory Impairment, Renal Disease Additional Past Medical History / Comment(s): "PRODUCING TOO MUCH BLOOD." SKIN "PURPLE" COLOR R/T PREV RX. SCHIZOPHRENIC-LIMITED UNDERSTANDING PER SISTER. History of Any Multi-Drug Resistant Organisms: None Reported Additional Past Surgical History / Comment(s): COLONOSCOPY, BILATERAL CATARACTS. Past Anesthesia/Blood Transfusion Reactions: Family History of Problems w/ Anesthesia Additional Past Anesthesia/Blood Transfusion Reaction / Comm: SISTER HAS PONV. Past Psychological History: Schizophrenia Smoking Status: Former smoker Past Alcohol Use History: None Reported Additional Past Alcohol Use History / Comment(s): QUIT SMOKING 2017-SMOKING SINCE AGE 14, UP TO 2 PPD. Past Drug Use History: None Reported - Past Family History Mother Sister(s) Family Medical History: Cancer, Deep Vein Thrombosis (DVT) Additional Family Medical History / Comment(s): SISTER - BREAST CANCER, DVT. MOTHER - COLON CANCER. Medications and Allergies Home Medications Medication Instructions Recorded Confirmed Type cloZAPine [Clozaril] 200 mg PO DAILY 10/19/18 03/16/24 History cloZAPine [Clozaril] 400 mg PO HS 10/19/18 03/16/24 History Hydroxyurea [Hydrea] 500 mg PO DAILY 04/06/21 03/16/24 History Sertraline [Zoloft] 200 mg PO DAILY 04/06/21 03/16/24 History LORazepam [Ativan] 1 mg PO DAILY PRN 03/16/24 03/16/24 History Allergies Allergy/AdvReac Type Severity Reaction Status Date / Time No Known Allergies Allergy Verified 07/09/21 15:16 Physical Exam Vitals: Vital Signs Temp Pulse Pulse Resp BP BP BP 03/17/24 07:00 98.8 F 99 16 127/81 03/17/24 02:00 97.6 F 84 17 110/68 03/16/24 22:06 98.3 F 94 15 107/62 03/16/24 19:35 87 16 130/78 03/16/24 17:24 79 18 113/78 03/16/24 17:06 19 03/16/24 16:21 97.5 F L 107 H 20 96/60 Pulse Ox 03/17/24 07:00 95 03/17/24 02:00 96 03/16/24 22:06 99 03/16/24 19:35 96 03/16/24 17:24 97 03/16/24 17:06 03/16/24 16:21 96 Intake and Output 03/16/24 03/17/24 03/17/24 22:59 06:59 14:59 Intake Total 236 Balance 236 Intake: Oral 236 Other: Voiding Method Toilet Toilet Urinal Urinal # Bowel Movements 1 Weight 63.503 kg GENERAL DESCRIPTION: Elderly male lying in bed, no distress. No tachypnea or accessory muscle of respiration use. HEENT: Shows Pallor , no scleral icterus. Oral mucous membrane is dry. No pharyngeal erythema or thrush NECK: Trachea central, no thyromegaly. LUNGS: Unlabored breathing. Decreased breath sound the base HEART: S1, S2, regular rate and rhythm. No loud murmur ABDOMEN: Soft, no tenderness , guarding or rigidity, no organomegaly EXTREMITIES: No edema of feet. SKIN: No rash, no masses palpable. NEUROLOGICAL: The patient is awake, alert, mood and affect normal. Results CBC & Chem 7: 03/18/24 05:14 03/18/24 05:14 Labs: Abnormal Lab Results - Last 24 Hours (Table) 03/16/24 03/16/24 03/16/24 Range/Units 16:53 16:53 16:53 RBC 3.29 L (4.30-5.90) m/uL Hgb 11.9 L (13.0-17.5) gm/dL Hct 35.9 L (39.0-53.0) % MCV 109.0 H (80.0-100.0) fL MCH 36.0 H (25.0-35.0) pg Plt Count 543 H (150-450) k/uL Neutrophils # 9.3 H (1.3-7.7) k/uL Lymphocytes # 0.6 L (1.0-4.8) k/uL Macrocytosis Marked A PT 13.3 H (10.0-12.5) sec INR 1.3 H (<1.2) Potassium 3.2 L (3.5-5.1) mmol/L BUN 22 H (9-20) mg/dL Glucose 136 H (74-99) mg/dL Alkaline Phosphatase 149 H (38-126) U/L Albumin 3.2 L (3.5-5.0) g/dL Assessment and Plan (1) Pneumonia Current Visit: Yes Status: Acute Code(s): J18.9 - PNEUMONIA, UNSPECIFIED ORGANISM SNOMED Code(s): 811541414 Plan: 1patient presented to hospital with increasing shortness of breath and cough with evidence of bibasilar infiltrate on his chest x-ray concerning for possible community-acquired pneumonia typical versus atypical 2-we will try to obtain sputum for Gram stain culture 3-check urine for Legionella antigen and mycoplasma IgM 4-continue with Rocephin and doxycycline while waiting for the workup to be completed We will follow on clinical condition and cultures to further adjust medication if needed Thank you for this consultation we will follow the patient along with you Dictation was produced using [employer] software. please excuse any grammatical, word or spelling errors. Time with Patient: Greater than 30
[2024-03-18 08:33] LABS: HCT 31.4 % (39.6-50.0); HGB 10.3 g/dL (13.0-17.0); MCH 36.3 pg (27.0-32.0); MCHC 32.8 g/dL (32.0-37.0); MCV 110.6 FL (80.0-97.0); Mean Platelet Volume 9.7 FL (9.5-12.2); NRBC Per 100 WBC 0 X 10*3/uL (0.00-0.01); Platelet Count 377 X 10*3/uL (140-440); RBC 2.84 X 10*6/uL (4.40-5.60); RDW 13.9 % (11.5-14.5); WBC 7.67 X 10*3/uL (4.50-10.00)
[2024-03-18 08:45] LABS: ALT 12 U/L (10-49); AST 14 U/L (14-35); Albumin 2.6 g/dL (3.8-4.9); Albumin/Globulin Ratio 0.93 Ratio (1.60-3.17); Alkaline Phosphatase 109 U/L (41-126); BUN/Creat Ratio 9.27 Ratio (12.00-20.00); Blood Urea Nitrogen 10.2 mg/dL (9.0-27.0); Calcium 7.8 mg/dL (8.7-10.3); Chloride 113 mmol/L (96-109); Globulin 2.8 g/dL (1.6-3.3); Glucose 114 mg/dL (70-110); Potassium 3.5 mmol/L (3.5-5.5); Sodium 147 mmol/L (135-145); Total Bilirubin 0.3 mg/dL (0.3-1.2); Total Protein 5.4 g/dL (6.2-8.2)
[2024-03-18 09:30] LABS: Basophils # (A) 0.04 X 10*3/uL (0.00-0.10); Basophils % (A) 0.5 %; Eosinophils # (A) 0 X 10*3/uL (0.04-0.35); Eosinophils % (A) 0 %; Lymphocytes # (A) 1.04 X 10*3/uL (0.90-5.00); Lymphocytes % (A) 13.6 %; Macrocytosis (M) 2+; Monocytes # (A) 0.28 X 10*3/uL (0.20-1.00); Monocytes % (A) 3.7 %; Neutrophils # (A) 6.21 X 10*3/uL (1.80-7.70); Neutrophils % (A) 80.9 %
[2024-03-18] MEDS: DEXTROSE 5% IN WATER 1,000 ML with POTASSIUM CHLORIDE 40 MEQ IV SCH (20:32)
--- NOTE | 2024-03-18 22:27 | P.PN ---
Subjective Progress Note Date: 03/18/24 Principal diagnosis: Reason for follow-up is pneumonia Patient is a 68-year-old male with a past medical history significant for reflux memory impairment, renal disease patient has been brought into the hospital concerning for shortness of breath cough and congestion that apparently has been getting worse for the last few days patient chest x-ray with bibasilar infiltrate suggestive of pneumonia prompted this consultation. On today's evaluation that is 03/18/2024, the patient continues to be afebrile, the patient is on room air and breathing comfortably, the Pt denies having any chest pain continue to have a cough but no worsening not bringing up any sputum, the patient denies having any abdominal pain no vomiting or any diarrhea has been reported. Patient white count 7.67 creatinine is 1.1 urine for Legionella antigen is negative Objective - Vital Signs Vital signs: Vital Signs Temp 97.7 F 03/18/24 07:00 Pulse 94 03/18/24 07:00 Resp 16 03/18/24 07:00 BP 116/67 03/18/24 07:00 Pulse Ox 93 L 03/18/24 07:00 FiO2 Intake & Output 03/17/24 03/18/24 03/18/24 18:59 06:59 18:59 Intake Total 354 118 Output Total 300 Balance 354 -300 118 Intake: Oral 354 118 Output: Urine 300 Other: Voiding Method Toilet Toilet Urinal Urinal # Voids 2 1 # Bowel Movements 1 1 - Exam GENERAL DESCRIPTION: An elderly male lying in bed in no distress RESPIRATORY SYSTEM: Unlabored breathing , decreased breath sounds at bases HEART: S1 S2 regular rate and rhythm , ABDOMEN: Soft , no tenderness EXTREMITIES: No edema feet - Labs CBC & Chem 7: 03/18/24 05:14 03/18/24 05:14 Labs: Abnormal Lab Results - Last 24 Hours (Table) 03/18/24 03/18/24 Range/Units 05:14 05:14 RBC 2.84 L (4.40-5.60) X 10*6/uL Hgb 10.3 L (13.0-17.0) g/dL Hct 31.4 L (39.6-50.0) % MCV 110.6 H (80.0-97.0) FL MCH 36.3 H (27.0-32.0) pg Immature Gran # 0.10 H (0.00-0.04) X 10*3/uL Eosinophils # 0 L (0.04-0.35) X 10*3/uL Macrocytosis (manual) 2+ A Sodium 147 H (135-145) mmol/L Chloride 113 H (96-109) mmol/L BUN/Creatinine Ratio 9.27 L (12.00-20.00) Ratio Glucose 114 H (70-110) mg/dL Calcium 7.8 L (8.7-10.3) mg/dL Total Protein 5.4 L (6.2-8.2) g/dL Albumin 2.6 L (3.8-4.9) g/dL Albumin/Globulin Ratio 0.93 L (1.60-3.17) Ratio Assessment and Plan (1) Pneumonia Current Visit: Yes Status: Acute Code(s): J18.9 - PNEUMONIA, UNSPECIFIED ORGANISM SNOMED Code(s): 165651919 Plan: 1patient presented to hospital with increasing shortness of breath and cough with evidence of bibasilar infiltrate on his chest x-ray concerning for possible community-acquired pneumonia typical versus atypical 2- urine for Legionella antigen negative sputum has not been collected 4-patient to continue with Rocephin and doxycycline while waiting for the workup to be completed Family at the bedside questions answered Dictation was produced using [employer] dictation software. please excuse any grammatical, word or spelling errors. Time with Patient: Less than 30
--- NOTE | 2024-03-19 01:01 | PN ---
PROGRESS NOTE DATE OF SERVICE: 03/18/2024 SUBJECTIVE: This is a 68-year-old gentleman, who was admitted with bacterial pneumonia, debility, and schizophrenia, is being closely monitored. The most recent chest x-ray done yesterday, which I reviewed personally showed some bilateral infiltrates. Multiple consultants are following the patient closely. PAST MEDICAL HISTORY: Reviewed. REVIEW OF SYSTEMS: A 14-point review is negative except as mentioned earlier. PHYSICAL EXAMINATION: VITAL SIGNS: Pulse is 94, blood pressure 103/59, respirations 16. CHEST: A few scattered rhonchi and crackles. ABDOMEN: Soft. NERVOUS SYSTEM: Diffusely weak. LABORATORY STUDIES: Hemoglobin 10.3. Microcytosis. Sodium 147. ASSESSMENT: 1. Bilateral pneumonia, left more than the right. 2. Debility. 3. Schizophrenia. 4. History of dementia. 5. Hypernatremia. RECOMMENDATIONS AND DISCUSSION: I recommend to continue current management and continue symptomatic treatment. I would recommend changing the fluid to D5 water. Otherwise, continue with empiric antibiotics. PT, OT evaluation. Guarded prognosis because of multiple complex medical issues. Further recommendations to follow. See orders for further details. Closely follow with Infectious Disease. MMODL / IJN: [id number] /
[2024-03-19] MEDS: HYDROXYUREA 500 MG CAP PO SCH (08:37)
[2024-03-19 09:31] LABS: Calcium 7.9 mg/dL (8.7-10.3); Carbon Dioxide 22.9 mmol/L (21.6-31.8); Chloride 110 mmol/L (96-109); Glucose 105 mg/dL (70-110); Potassium 3.6 mmol/L (3.5-5.5); Sodium 142 mmol/L (135-145)
[2024-03-19 09:39] LABS: Basophils # (A) 0.05 X 10*3/uL (0.00-0.10); Basophils % (A) 0.7 %; Eosinophils # (A) 0 X 10*3/uL (0.04-0.35); Eosinophils % (A) 0 %; HCT 32.1 % (39.6-50.0); HGB 10.5 g/dL (13.0-17.0); Lymphocytes % (A) 13.9 %; MCHC 32.7 g/dL (32.0-37.0); MCV 109.9 FL (80.0-97.0); Mean Platelet Volume 9.9 FL (9.5-12.2); Monocytes # (A) 0.26 X 10*3/uL (0.20-1.00); Monocytes % (A) 3.6 %; NRBC Per 100 WBC 0 X 10*3/uL (0.00-0.01); Neutrophils % (A) 80.4 %; Platelet Count 347 X 10*3/uL (140-440); RBC 2.92 X 10*6/uL (4.40-5.60); WBC 7.21 X 10*3/uL (4.50-10.00)
[2024-03-19] MEDS: IPRATROPIUM-ALBUTEROL 3 ML NEB INHALATION SCH (12:08)
[2024-03-19 13:21] VITALS: BP 117/71; PULSE 89; RESP 17; TEMP 97.8
--- NOTE | 2024-03-19 16:14 | P.PN ---
Subjective Progress Note Date: 03/19/24 Principal diagnosis: Reason for follow-up is pneumonia Patient is a 68-year-old male with a past medical history significant for reflux memory impairment, renal disease patient has been brought into the hospital concerning for shortness of breath cough and congestion that apparently has been getting worse for the last few days patient chest x-ray with bibasilar infiltrate suggestive of pneumonia prompted this consultation. On today's evaluation that is 03/19/2024, Patient is afebrile patient is currently on room air and denies having any shortness of breath, the patient denies any chest pain or cough, the patient denies any nausea vomiting did not have any abdominal pain and no diarrhea. Patient white count 7.21, creatinine 1.0 Objective - Vital Signs Vital signs: Vital Signs Temp 98.7 F 03/19/24 07:00 Pulse 85 03/19/24 07:00 Resp 24 03/19/24 07:00 BP 116/72 03/19/24 07:00 Pulse Ox 98 03/19/24 07:00 FiO2 Intake & Output 03/18/24 03/19/24 03/19/24 18:59 06:59 18:59 Intake Total 354 360 Balance 354 360 Intake: Oral 354 360 Other: Voiding Method Urinal Toilet Urinal # Voids 3 # Bowel Movements 1 - Exam GENERAL DESCRIPTION: An elderly male lying in bed in no distress RESPIRATORY SYSTEM: Unlabored breathing , decreased breath sounds at bases HEART: S1 S2 regular rate and rhythm , ABDOMEN: Soft , no tenderness EXTREMITIES: No edema feet - Labs CBC & Chem 7: 03/19/24 05:56 03/19/24 05:56 Labs: Abnormal Lab Results - Last 24 Hours (Table) 03/19/24 03/19/24 Range/Units 05:56 05:56 RBC 2.92 L (4.40-5.60) X 10*6/uL Hgb 10.5 L (13.0-17.0) g/dL Hct 32.1 L (39.6-50.0) % MCV 109.9 H (80.0-97.0) FL MCH 36.0 H (27.0-32.0) pg Immature Gran # 0.10 H (0.00-0.04) X 10*3/uL Eosinophils # 0 L (0.04-0.35) X 10*3/uL Chloride 110 H (96-109) mmol/L BUN 8.0 L (9.0-27.0) mg/dL BUN/Creatinine Ratio 8.00 L (12.00-20.00) Ratio Calcium 7.9 L (8.7-10.3) mg/dL Assessment and Plan (1) Pneumonia Status: Acute Code(s): J18.9 - PNEUMONIA, UNSPECIFIED ORGANISM SNOMED Code(s): 426464277 Plan: 1patient presented to hospital with increasing shortness of breath and cough with evidence of bibasilar infiltrate on his chest x-ray concerning for possible community-acquired pneumonia typical versus atypical 2- urine for Legionella antigen negative sputum has not been collected 4-patient has received a 4-day course of Rocephin while inpatient will give him 1 more day of oral Ceftin on discharge to finish his 5-day course of therapy Dictation was produced using [employer] dictation software. please excuse any grammatical, word or spelling errors. Time with Patient: Less than 30
--- NOTE | 2024-03-19 22:46 | P.DS ---
Providers Date of admission: 03/16/24 20:28 Expected date of discharge: 03/19/24 Attending physician: Bogdan Rm Consults: 03/17/24 09:51 Consult Physician Routine Consulting Provider: Fartun Frazier Consult Reason/Comments: Pneumonia Do you want consulting provider notified?: Yes Primary care physician: [facility] Course: History of present illness; patient is 68-year-old gentleman past medical history significant for schizophrenia who was brought to the ER for generalized weakness and chest congestion. Patient is a poor historian, history obtained from patient's family. According to sister who is a caregiver patient has been feeling weak over the last few days. Patient has been exposed to sick contacts at home as most of the family is dealing with upper respiratory tract infection. Patient has been complaining of cough and chest congestion for the last few days. Patient has been having poor appetite. Patient is complaining of productive cough there is no complaint of fever or chills. Patient has become weak and unable to ambulate because of weakness. Because of these symptoms, patient brought to the ER Initial lab work done in the ER showed WBC 10.4, hemoglobin 11.9, platelet count 543, INR 1.3, sodium 141, potassium 3.2, BUN 22, creatinine 1.24, glucose 136, alk phos 149, Influenza A not detected Influenza B not detected RSV not detected COVID-19 not detected EKG done in the ER showed heart rate of 91, no ST segment elevation or depression seen, no T-wave inversions seen. Chest x-ray done in the ER showed bibasilar atypical pneumonia Patient admitted to internal medicine service March 19: Eating well. Very little cough. No shortness of breath. Patient did smoke in the past for a long time. He will be prescribed albuterol and Qvar. Overall feeling much better. On examination: VITAL SIGNS: [97.8, 89, 17, 170/71, 98% room air] GENERAL APPEARANCE: Stated age of the bed, feeling better HEENT: Normal external appearance of nose and ear. Oral cavity normal EYES: Pupils equal. Conjunctiva normal. NECK: JVD not raised. Mass not palpable. RESPIRATORY: Respiratory effort increased. Lungs decreased breath sound. CARDIOVASCULAR: First and second sounds normal. No edema. ABDOMEN: Soft. Liver and spleen not palpable. No tenderness. No mass palpable. PSYCHIATRY: Alert and oriented x3. Mood and affect normal. INVESTIGATIONS, reviewed in the clinical context: March 19: White count 7.2 hemoglobin 10.5 platelets 347 sodium 142 potassium 3.6 creatinine 1.0 Influenza type A, type B, RSV, COVID-19: Not detected Assessment Bacterial pneumonia Medical debility Schizophrenia Memory impairment COPD in a previous smoker Disposition: Home Past Medical History Past Medical History: GERD/Reflux, Memory Impairment, Renal Disease Additional Past Medical History / Comment(s): "PRODUCING TOO MUCH BLOOD." SKIN "PURPLE" COLOR R/T PREV RX. SCHIZOPHRENIC-LIMITED UNDERSTANDING PER SISTER. History of Any Multi-Drug Resistant Organisms: None Reported Additional Past Surgical History / Comment(s): COLONOSCOPY, BILATERAL CATARACTS. Past Anesthesia/Blood Transfusion Reactions: Family History of Problems w/ Anesthesia Additional Past Anesthesia/Blood Transfusion Reaction / Comment(s): SISTER HAS PONV. Past Psychological History: Schizophrenia Smoking Status: Former smoker Past Alcohol Use History: None Reported Additional Past Alcohol Use History / Comment(s): QUIT SMOKING 2017-SMOKING SINCE AGE 14, UP TO 2 PPD. Past Drug Use History: None Reported Plan - Discharge Summary Discharge Rx Participant: No New Discharge Prescriptions: New cefUROXime axetiL [Ceftin] 500 mg PO BID 1 Days #2 tab Albuterol Sulfate [Albuterol Sulfate Hfa] 1 puff PO Q4-6H #8.5 gm Beclomethasone Dipropionate [Qvar 40 mcg Redihaler] 1 puff INHALATION BID #10.6 gm Continue cloZAPine [Clozaril] 400 mg PO HS cloZAPine [Clozaril] 200 mg PO DAILY LORazepam [Ativan] 1 mg PO DAILY PRN PRN Reason: Anxiety Sertraline [Zoloft] 200 mg PO DAILY Hydroxyurea [Hydrea] 500 mg PO DAILY Discharge Medication List cloZAPine [Clozaril] 200 mg PO DAILY 10/19/18 [History] cloZAPine [Clozaril] 400 mg PO HS 10/19/18 [History] Hydroxyurea [Hydrea] 500 mg PO DAILY 04/06/21 [History] Sertraline [Zoloft] 200 mg PO DAILY 04/06/21 [History] LORazepam [Ativan] 1 mg PO DAILY PRN 03/16/24 [History] Albuterol Sulfate [Albuterol Sulfate Hfa] 1 puff PO Q4-6H #8.5 gm 03/19/24 [Rx] Beclomethasone Dipropionate [Qvar 40 mcg Redihaler] 1 puff INHALATION BID #10.6 gm 03/19/24 [Rx] cefUROXime axetiL [Ceftin] 500 mg PO BID 1 Days #2 tab 03/19/24 [Rx] Follow up Appointment(s)/Referral(s): Artie Coppola DO [Primary Care Provider] - 1 Week Activity/Diet/Wound Care/Special Instructions: Dc antibiotics per dr frazier Discharge Disposition: HOME SELF-CARE
== END 2024-03-19 15:53 | disposition home or self-care (01) ==
LOC: EC 16:18 → SUPCPDRO 16:18 → 6NMEDSUR 20:28
PROVIDERS: ADMIT Hospitalist; ATTEND Hospitalist
DX: J15.9 Unspecified bacterial pneumonia (principal); J44.0 Chronic obstructive pulmonary disease with (acute) lower respiratory infection; E87.0 Hyperosmolality and hypernatremia; R53.81 Other malaise; F20.9 Schizophrenia, unspecified; Z87.891 Personal history of nicotine dependence; Z79.899 Other long term (current) drug therapy; Z86.59 Personal history of other mental and behavioral disorders
CPT/HCPCS: 96361 ×3; 96365 ×2; 96366 ×2; 99285; 36415; 93005; 85379; 86738; 83880; 80053 ×2; 80048; 87449; 83605; 84484 ×2; 85025 ×3; 85610; 85730; 87636; 71045; 71046; G0378 ×4; S0176; J3480; J0696 ×4; S0136 ×4